=== PATIENT | male | born 1950 | race Caucasian/White ===

== ENCOUNTER 2017-05-31 08:41 | Day surgery (SDC) | payer MEDICARE ==
[~2017-05-31] VITALS: Ht 185.4 cm; Wt 85.5 kg
[~2017-05-31 08:41] MED LIST: CARB1CAP PO; CARB1TAB PO; LEVO150T PO; ROTI1PAT4 TD; TESTOSTERONE CREAM TP; [UNRECOGNIZED DRUG - OTHER] PO; [UNRECOGNIZED DRUG - OTHER] PO
[2017-05-31] MEDS ORDERED: LACTATED RINGERS 1,000 ML IV SCH (09:19)
[2017-05-31 09:22] VITALS: BP 153/92
[2017-05-31] MEDS ORDERED: MIDAZOLAM 1 MG/ML, 2ML ONE (11:13)
[2017-05-31] MEDS ORDERED: FENTANYL PF 250 MCG/5ML ONE (11:13)
[2017-05-31] MEDS ORDERED: EPHEDRINE 50 MG/ML, 1ML ONE (11:37)
[2017-05-31] MEDS ORDERED: PROPOFOL 10 MG/ML, 20ML ONE (11:37)
[2017-05-31] MEDS ORDERED: ONDANSETRON 2MG/ML, 2ML ONE (11:37)
[2017-05-31] MEDS ORDERED: ONDANSETRON 2MG/ML, 2ML IVPush PRN (12:30)
[2017-05-31] MEDS ORDERED: HYDROcodone/APAP 7.5-325MG/15ML UDC PO PRN (12:30)
[2017-05-31] MEDS ORDERED: LABETALOL 5MG/ML, 20ML IV PRN (12:30)
[2017-05-31] MEDS ORDERED: METOPROLOL 1 MG/ML, 5ML IV PRN (12:30)
[2017-05-31] MEDS ORDERED: FENTANYL PF 100 MCG/2ML IV PRN (12:30)
[2017-05-31] MEDS ORDERED: ALBUTEROL SULFATE 2.5 MG/3 ML NPPB PRN (12:30)
[2017-05-31] MEDS ORDERED: EPHEDRINE 50 MG/ML, 1ML IVPush PRN (12:30)
[2017-05-31] MEDS ORDERED: ACETAMINOPHEN 325 MG TABLET PO PRN (12:30)
[2017-05-31] MEDS ORDERED: HYDROmorphone 1 MG/ML, 1ML IV PRN (12:30)
[2017-05-31] MEDS ORDERED: OXYcodone/APAP 5/325MG TABLET PO PRN (13:30)
== END 2017-05-31 15:00 ==
LOC: OUT 08:41
PROVIDERS: ATTEND Urology
DX: N20.0 Calculus of kidney (principal); I10 Essential (primary) hypertension; E03.9 Hypothyroidism, unspecified; G20 Parkinson's disease; Z85.850 Personal history of malignant neoplasm of thyroid; Z98.890 Other specified postprocedural states
CPT/HCPCS: 50590; 81001; 87086; 93005; J2250; J2405; J2704; J3010; J7120

== ENCOUNTER → 2020-11-05 | Outpatient (CLI) | payer MEDICARE | END | disposition home or self-care (01) | LOC: STAR 11:46 | PROVIDERS: ATTEND Internal Medicine | DX: Z20.828 Contact with and (suspected) exposure to other viral communicable diseases (principal) | CPT/HCPCS: 87635 ==

== ENCOUNTER 2020-11-09 10:31 | Day surgery (SDC) | payer MEDICARE ==
[~2020-11-09] VITALS: Ht 185.4 cm; Wt 88.5 kg
[2020-11-09 10:56] VITALS: BP 134/90
[2020-11-09] MEDS ORDERED: CHLORHEXIDINE 15 ML UDC MM STA (10:58)
[2020-11-09] MEDS ORDERED: LACTATED RINGERS 1,000 ML IV SCH (11:00)
[2020-11-09] MEDS ORDERED: CHLORHEXIDINE 15 ML UDC ONE (11:06)
[2020-11-09] MEDS ORDERED: RASA1TAB2 PO (11:27)
[2020-11-09] MEDS ORDERED: CARB1TAB2 PO (11:27)
[2020-11-09] MEDS ORDERED: ESOM20CA PO (11:27)
[2020-11-09] MEDS ORDERED: LEVO200T PO (11:27)
[2020-11-09] MEDS ORDERED: AMAN137C PO (11:27)
[2020-11-09] MEDS ORDERED: CARB1CAP PO (11:27)
[2020-11-09] MEDS ORDERED: ROTI1PAT4 TD (11:27)
[2020-11-09] MEDS ORDERED: LOSA50TA14 PO (11:27)
[2020-11-09] MEDS ORDERED: FENTANYL PF 250 MCG/5ML ONE (12:40)
[2020-11-09] MEDS ORDERED: DEXAMETHASONE 4 MG/ML, 1ML ONE (12:42)
[2020-11-09] MEDS ORDERED: ONDANSETRON 2MG/ML, 2ML ONE (12:42)
[2020-11-09] MEDS ORDERED: PROPOFOL 10 MG/ML, 20ML ONE (12:42)
[2020-11-09] MEDS ORDERED: OMNIPAQUE 350 MG/ML, 50 ML BOTTLE IV ONE (13:33)
[2020-11-09] MEDS ORDERED: OMNIPAQUE 350 MG/ML, 50 ML BOTTLE ONE (13:54)
[2020-11-09] MEDS ORDERED: ACETAMINOPHEN 325 MG TABLET PO PRN (14:00)
[2020-11-09] MEDS ORDERED: METHOCARBAMOL 1,000 MG in DEXTROSE 5% 100 ML IV PRN (14:00)
[2020-11-09] MEDS ORDERED: hydrALAzine 20 MG/ML, 1ML IV PRN (14:00)
[2020-11-09] MEDS ORDERED: LABETALOL 5MG/ML, 20ML IV PRN (14:00)
[2020-11-09] MEDS ORDERED: ONDANSETRON 2MG/ML, 2ML IV PRN (14:00)
[2020-11-09] MEDS ORDERED: KETOROLAC 30 MG/1 ML IV PRN (14:00)
[2020-11-09] MEDS ORDERED: ONDANSETRON 2MG/ML, 2ML IVPush PRN (14:00)
[2020-11-09] MEDS ORDERED: MEPERIDINE/PF 25MG/0.5ML IVPush PRN (14:00)
[2020-11-09] MEDS ORDERED: HYDROcodone/APAP 5/325 TABLET PO PRN (14:00)
[2020-11-09] MEDS ORDERED: HYDROmorphone 1 MG/ML, 1ML INJ IVPush PRN (14:00)
[2020-11-09] MEDS ORDERED: EPHEDRINE 50 MG/ML, 1ML IVPush PRN (14:00)
[2020-11-09] MEDS ORDERED: OXYcodone 5 MG/5 ML ORAL.SOL UDC PO PRN (14:00)
[2020-11-09] MEDS ORDERED: FENTANYL PF 100 MCG/2ML IV PRN (14:00)
== END 2020-11-09 17:35 | disposition home or self-care (01) ==
LOC: OUT 10:31
PROVIDERS: ATTEND Urology
DX: N20.0 Calculus of kidney (principal); I10 Essential (primary) hypertension; Z79.899 Other long term (current) drug therapy; Z98.890 Other specified postprocedural states; Z72.89 Other problems related to lifestyle; Z98.52 Vasectomy status; Z85.850 Personal history of malignant neoplasm of thyroid; Z82.49 Family history of ischemic heart disease and other diseases of the circulatory system; Z83.3 Family history of diabetes mellitus
CPT/HCPCS: 52356; 74420; 82360; 88300; 93005; J1100; J1885; J2405; J2704; J3010; Q9967; C1769; C2617